=== PATIENT | female | born 1985 | race American Indian/Alaskan Native ===

== ENCOUNTER 2019-11-01 12:03 | Outpatient (CLI) | payer MEDICAID ==
[2019-11-01] MEDS ORDERED: LACTATED RINGERS 500 ML IV ONE (12:22)
[2019-11-01 12:39] VITALS: BP 100/57
[2019-11-01 13:23] LABS: Bilirubin,Urine NEG (Negative); Blood,Urine NEG (Negative); Color,Urine Yellow (Yellow); Mucus,Urine FEW /HPF; Protein,Urine <15 mg/dL mg/dL (Negative); Urobilinogen,Urine < 2.0 mg/dL (<2.0)
== END 2019-11-01 13:22 | disposition home or self-care (01) ==
LOC: TRG 12:03 → APU 12:03 → TRG 13:22
PROVIDERS: ATTEND Obstetrics & Gynecology
DX: O36.8130 Decreased fetal movements, third trimester, not applicable or unspecified (principal); Z3A.29 29 weeks gestation of pregnancy
CPT/HCPCS: 59025; 81001

== ENCOUNTER 2019-11-27 20:33 | Outpatient (CLI) | payer BC, MEDICAID ==
[2019-11-27 21:25] VITALS: BP 118/64
--- NOTE | 2019-11-27 22:47 | Ultrasound Report ---
ULTRASOUND OBSTETRIC LIMITED INDICATION / CLINICAL INFORMATION: rule out placental abruption. TECHNIQUE: Transabdominal ultrasound imaging. COMPARISON: 11/18/2019 FINDINGS: HEART RATE (beats per minute): 150 AMNIOTIC FLUID INDEX (cm) = 9.9 cm PRESENTATION: Cephalic. ADDITIONAL FINDINGS: Placenta is located anteriorly. There is no sonographic suggestion of abruption. IMPRESSION: Viable IUP in cephalic presentation. No obvious placental abnormality. Signer Name: Jenelle Bush MD Signed: 11/27/2019 10:42 PM Workstation Name: [id number]
== END 2019-11-27 23:35 | disposition home or self-care (01) ==
LOC: TRG 20:33 → APU 20:45 → TRG 23:35
PROVIDERS: ATTEND Obstetrics & Gynecology
DX: O26.853 Spotting complicating pregnancy, third trimester (principal); Z3A.33 33 weeks gestation of pregnancy
CPT/HCPCS: 59025; 76815

== ENCOUNTER 2020-01-11 15:57 | Outpatient (CLI) | payer BC, MEDICAID ==
[2020-01-11] MEDS ORDERED: HYDROcodone/ACETAMINOPHEN 10-325MG TAB PO PRN (17:39)
[2020-01-11 17:45] VITALS: BP 128/75
== END 2020-01-11 18:05 | disposition home or self-care (01) ==
LOC: TRG 15:57 → APU 15:58 → TRG 18:05
PROVIDERS: ATTEND Obstetrics & Gynecology
DX: O62.9 Abnormality of forces of labor, unspecified (principal); O99.513 Diseases of the respiratory system complicating pregnancy, third trimester; J45.909 Unspecified asthma, uncomplicated; Z3A.39 39 weeks gestation of pregnancy
CPT/HCPCS: 59025; Q0177